=== PATIENT | male | born 1960 | race Caucasian/White ===

== ENCOUNTER → 2022-05-30 | Outpatient (CLI) | payer BC, SELFPAY ==
[2022-05-30 18:03] LABS: Microalbumin,Random Urine 87.8 mg/L (NO RANGE EST.); Microalbumin:Creatinine Ratio 30.3 mg/g CRE (<30 mg/g CRE)
[2022-05-30 18:47] LABS: Anion Gap 6 (5-15); BUN 35 mg/dL (7-18); BUN/Creat Ratio 29.7 RATIO (10-20); Calcium,Total 9.6 mg/dL (8.5-10.1); Chloride 110 mmol/L (98-107); Creatinine, Serum 1.18 mg/dL (0.70-1.30); EST Glomerular Filtration Rate 66 mL/min (>60); Est Glom Filt Rate - Afr Amer 80 mL/min (>60); Glucose 117 mg/dL (74-106); Potassium 4.2 mmol/L (3.5-5.1); Sodium Level 141 mmol/L (136-145)
== END | disposition home or self-care (01) ==
LOC: MFPLAB 15:20
PROVIDERS: PCP Family Medicine; Referring Provider Family Medicine; Visit Provider Family Medicine
DX: I10 Essential (primary) hypertension (principal)
CPT/HCPCS: 36415; 80048; 82043; 82570

== ENCOUNTER → 2022-06-12 | Outpatient (CLI) | payer BC, SELFPAY ==
--- NOTE | 2022-06-12 16:40 | RAD_ITS ---
EXAM: XR LEFT KNEE, 3 VIEWS CLINICAL INDICATION: PAIN TECHNIQUE: Three views of the left knee. This report was created using [employer] report generation technology. COMPARISON: None. FINDINGS: BONES/JOINTS: There are degenerative changes with narrowing of the medial knee joint space. Small suprapatellar joint effusion present. No acute fracture. No subluxation. Normal alignment. No sclerotic or destructive changes observed. SOFT TISSUES: Unremarkable. No soft tissue swelling or gas. No radiopaque foreign body. RAD/Knee 3 Views IMPRESSION: Degenerative changes with narrowing of the medial knee joint. There is a small joint effusion present. There is no acute osseous abnormality. Electronically Signed: Christ Rice MD at 3:08 EDT ,
== END | disposition home or self-care (01) ==
LOC: MTRAD 16:38
PROVIDERS: PCP Family Medicine; Referring Provider Nurse Practitioner Family; Visit Provider Nurse Practitioner Family
DX: M25.562 Pain in left knee (principal)
CPT/HCPCS: 73562

== ENCOUNTER → 2022-08-14 | Outpatient (CLI) | payer BC, SELFPAY ==
[2022-08-14 16:41] LABS: Lyme Ab Screen Interpretation REF LAB
[2022-08-14 17:34] LABS: Absolute Lymphocyte Count 1.47 X10^3/uL (0.83-4.51); Absolute Neutrophil Count 3.7 X10^3/uL (2.0-7.7); Basophil# 0.04 X10^3/uL; Basophil% 0.7 % (0-1); Eosinophil# 0.11 X10^3/uL; Eosinophils% 1.8 % (0-5); Hematocrit 38.9 % (40-54); Hemoglobin 13.4 g/dL (13.0-16.5); Lymphocyte # 1.47 X10^3/ul (0.83-4.51); Lymphocyte % 24.3 % (19-41); Mean Corp Hgb Conc 34.4 g/dL (32-36); Mean Corpuscular Hgb 32.3 pg (27.0-32.0); Mean Corpuscular Volume 93.7 fL (80-94); Mean Platelet Vol. 9.9 fl (6.2-12.0); Monocyte# 0.72 X10^3/uL; Monocyte% 11.9 % (0-10); NRBC Flagged by Analyzer 0 % (0-5); Neutrophil # 3.69 X10^3/uL (2.7-7.7); Platelet Count 215 K/mm3 (150-450); RBC Distribution Width CV 12.4 % (11.6-14.6); RBC Distribution Width SD 42.7 fl (35.1-43.9); Red Blood Count 4.15 M/mm3 (4.6-6.2); White Blood Count 6.1 K/mm3 (4.4-11.0)
[2022-08-14 17:53] LABS: Erythrocyte Sedimentation Rate 18 mm/hr (0-20)
[2022-08-14 18:37] LABS: Microalbumin,Random Urine 18.6 mg/L (NO RANGE EST.); Microalbumin:Creatinine Ratio 16.2 mg/g CRE (<30 mg/g CRE)
[2022-08-14 18:52] LABS: ALB/GLOB Ratio 1.2 RATIO (0.9-2.4); AST(SGOT) 23 U/L (15-37); Alanine Aminotransfer ALT/SGPT 32 U/L (16-61); Albumin, Serum 3.7 g/dL (3.2-5.0); Alkaline Phosphatase 59 U/L (45-117); Anion Gap 9 (5-15); BUN 26 mg/dL (7-18); BUN/Creat Ratio 27.9 RATIO (10-20); Calcium,Total 9.5 mg/dL (8.5-10.1); Chloride 107 mmol/L (98-107); Creatinine, Serum 0.93 mg/dL (0.70-1.30); EST Glomerular Filtration Rate 87 mL/min (>60); Est Glom Filt Rate - Afr Amer 105 mL/min (>60); Globulin 3.2 g/dL (2.2-4.2); Glucose 92 mg/dL (74-106); Protein, Total 6.9 g/dL (6.4-8.2); Sodium Level 140 mmol/L (136-145)
[2022-08-15 08:56] LABS: Hepatitis C Antibody Non-Reactive (Nonreactive); Vitamin B12 391 pg/mL (211-911)
[2022-08-16 15:38] LABS: Lyme Scn Total Ab w/Rflx Negative (Negative)
[2022-08-16 16:25] LABS: ANTINUCLEAR ANTIBODIES DIRECT Negative (Negative)
== END | disposition home or self-care (01) ==
LOC: MFPLAB 16:39
PROVIDERS: Nurse Practitioner Family; PCP Family Medicine; Referring Provider Family Medicine; Visit Provider Family Medicine
DX: R53.83 Other fatigue (principal); N18.2 Chronic kidney disease, stage 2 (mild)
CPT/HCPCS: 36415; 80053; 82043; 82570; 82607; 82746; 85025; 85652; 86038; 86618; 86803

== ENCOUNTER → 2023-01-26 | Outpatient (CLI) | payer BC, SELFPAY ==
[2023-01-26 07:48] LABS: Absolute Lymphocyte Count 1.31 X10^3/uL (0.83-4.51); Absolute Neutrophil Count 2.6 X10^3/uL (2.0-7.7); Basophil# 0.04 X10^3/uL; Basophil% 0.8 % (0-1); Eosinophils% 2.1 % (0-5); Hematocrit 42.1 % (40-54); Hemoglobin 14.3 g/dL (13.0-16.5); Lymphocyte # 1.31 X10^3/ul (0.83-4.51); Lymphocyte % 27.5 % (19-41); Mean Corpuscular Hgb 32.1 pg (27.0-32.0); Mean Corpuscular Volume 94.4 fL (80-94); Mean Platelet Vol. 9.6 fl (6.2-12.0); Monocyte# 0.71 X10^3/uL; Monocyte% 14.9 % (0-10); NRBC Flagged by Analyzer 0 % (0-5); Neutrophil # 2.59 X10^3/uL (2.7-7.7); Neutrophil % 54.5 % (47-70); Platelet Count 207 K/mm3 (150-450); RBC Distribution Width CV 12.4 % (11.6-14.6); RBC Distribution Width SD 43.2 fl (35.1-43.9); Red Blood Count 4.46 M/mm3 (4.6-6.2); White Blood Count 4.8 K/mm3 (4.4-11.0)
[2023-01-26 08:07] LABS: ALB/GLOB Ratio 1.3 RATIO (0.9-2.4); AST(SGOT) 16 U/L (15-37); Alanine Aminotransfer ALT/SGPT 33 U/L (16-61); Albumin, Serum 3.9 g/dL (3.2-5.0); Alkaline Phosphatase 53 U/L (45-117); Anion Gap 6 (5-15); BUN 25 mg/dL (7-18); BUN/Creat Ratio 24.3 RATIO (10-20); Calcium,Total 9.1 mg/dL (8.5-10.1); Chloride 106 mmol/L (98-107); Cholesterol 156 mg/dL (200); Creatinine, Serum 1.03 mg/dL (0.70-1.30); EST Glomerular Filtration Rate 77 mL/min (>60); Est Glom Filt Rate - Afr Amer 93 mL/min (>60); Glucose 115 mg/dL (74-106); High Density Lipoprotein 46 mg/dL; PSA,Total - Annual Screen 0.61 ng/mL (0.00-4.00); Protein, Total 6.9 g/dL (6.4-8.2); Sodium Level 140 mmol/L (136-145); Triglycerides 60 mg/dL; Very Low Density Lipoprotein 12 mg/dL (5-40)
[2023-01-26 08:19] LABS: Microalbumin,Random Urine 10.1 mg/L (NO RANGE EST.)
== END | disposition home or self-care (01) ==
LOC: LAB 07:11
PROVIDERS: PCP Family Medicine; Visit Provider Family Medicine
DX: I12.9 Hypertensive chronic kidney disease with stage 1 through stage 4 chronic kidney disease, or unspecified chronic kidney disease (principal); N18.2 Chronic kidney disease, stage 2 (mild); Z12.5 Encounter for screening for malignant neoplasm of prostate
CPT/HCPCS: 36415; 80053; 80061; 82043; 82570; 84153; 85025; G0103

== ENCOUNTER 2023-04-08 05:23 | Day surgery (SDC) | payer BC, SELFPAY ==
[2023-04-08 05:59] VITALS: BP 136/71; PULSE 50; RESP 16; TEMP 36.9; O2SAT 100; BMI 30.6
[2023-04-08] MEDS: Lactated Ringers 1,000 ML 15 ML IV (06:05)
--- NOTE | 2023-04-08 06:30 | COLBX_PTH ---
PATIENT: BLACK COLE LOC: EN U#:[id number] AGE/SX: 62/M ROOM: RE04/08/[address]: Dr. Antoine Zhou DO : 1960 BED: DIS: 04/08/2023 SPEC #: [id number] RECD: 04/08/23 12:16 STATUS: YAMINI DELIA #: [id number] CHARLENE: 04/08/23 06:[address]: Antoine Zhou DEPT: SURGICAL PATHOLOGY RECD BY: Marybeth Verdin ENTERED: 04/08/23 12:57 SP TYPE: COLON BX OTHR DR: Dr. Johnson Mckee MD Tissues: COLON BIOPSY Procedures: Surgery Specimen Level IV HEADER OPERATION: Colonoscopy with polypectomy PRE-OP DIAGNOSIS: Screening TISSUE SUBMITTED: Hepatic flexure polyp MICROSCOPIC DIAGNOSIS Colonic polyp at hepatic flexure, biopsy: Fragments of tubular adenoma. AM:rosmery 04/09/2023 MICROSCOPIC DESCRIPTION Slides are reviewed. GROSS DESCRIPTION Received in fixative is one container labeled with the patient's name and designated hepatic flexure polyp. The specimen consists of two irregular fragments of light bryson soft tissue that in aggregate measure 0.6 x 0.2 x 0.1 cm. The specimen is totally submitted in one cassette. / SJ:rg 04/08/2023 TC:5 CPT: 71906
--- NOTE | 2023-04-08 06:32 | HP.PCM_ITS ---
[facility] - General General Date of Admission: 04/08/23 Date of Service: 04/08/23 Chief Complaint: Screening colonoscopy HPI Narrative BLACK COLE, is a 62 M who presents today for screening colonoscopy. He has not had a colonoscopy in the past. He is not have any abdominal pain, lower GI bleeding, cramping, constipation or change in bowel habits. He has no family history of colon polyps or colon cancer. Overall is in very good health. [facility] Medical History (Updated 04/03/23 @ 12:44 by Geetha Garcia) Alcohol use CKD (chronic kidney disease), stage II Former smoker Heartburn High cholesterol History of stress test HTN (hypertension) Hypercholesterolemia Sleep apnea Wears glasses Home Medications amlodipine 5 mg tablet 5 mg PO DAILY 01/30/23 [History Last Taken 04/08/23 02:30] ammonium lactate 12 % topical cream 1 applic topical TID 01/30/23 [History Last Taken Unknown] multivitamin 1 tab PO DAILY 01/30/23 [History Last Taken Unknown] pravastatin 40 mg tablet 40 mg PO DAILY 01/30/23 [History Last Taken Unknown] telmisartan 40 mg tablet 40 mg PO DAILY 04/03/23 [History Last Taken 04/08/23 02:30] Allergy/AdvReac Type Severity Reaction Status Date / Time chlorpheniramine Allergy Other Verified 04/03/23 12:29 [From Tussionex] hydrocodone [From Tussionex] Allergy Other Verified 04/03/23 12:29 Family History (Updated 01/30/23 @ 09:44 by Norma Oro) Father Myocardial infarction Heart disease Uncle Prostate CA Surgical History History of tonsillectomy and adenoidectomy Hx of ventral hernia repair Hx of wisdom tooth extraction Social History (Updated 01/30/23 @ 09:45 by Norma Oro) household members: spouse current occupational status: employed Smoking Status: Former smoker ROS Review of Systems ROS Unobtainable: other Constitutional Constitutional: Denies fatigue, fever(s), poor appetite, weight gain or weight loss ENT HEENT: Denies mouth lesions Cardiovascular Cardiovascular: Denies abdominal bloating, abdominal edema or abdominal pain Respiratory/Chest Respiratory/Chest: Denies change in mental status, change in phlegm color, chest congestion or chest tightness Gastrointestinal Gastrointestinal: Denies belching, bloating, change in bowel habits, change in stool character, chewing difficulty, coffee ground emesis, constipation, cramping, diarrhea, dyspepsia, dysphagia, early satiety, excessive flatus, fecal incontinence, heartburn, hematemesis, hematochezia, hemorrhoids, loose stools, melena, nausea, odynophagia, rectal bleeding, tenesmus, vomiting or weight changes Genitourinary Genitourinary: Denies abdominal discomfort, burning urination or itching Musculoskeletal Musculoskeletal: Reports as per HPI; Denies muscle weakness or myalgias Integumentary Integumentary: Denies jaundice Neurologic Neurologic: Denies lack of coordination or weakness Psychiatric Psychiatric: Denies confusion, depression, memory loss, mood swings, paranoia or suicidal ideation Endocrine Endocrinology: Denies systems reviewed and no addt'l complaints, except as documented Hematologic/Lymphatic Hematologic/Lymphatic: Denies anemia, easy bleeding, easy bruising or lymphadenopathy Allergic/Immunologic Allergic/Immunologic: Denies systems reviewed and no addt'l complaints, except as documented Vital Signs Vital Signs Vital Signs: 04/08/23 05:59 04/08/23 05:59 Temperature 98.4 F Temperature Source Temporal Pulse Rate 50 L Respiratory Rate 16 Respiratory Pattern Normal Blood Pressure 136/71 H Blood Pressure Mean 92 Blood Pressure Source Monitor Blood Pressure Position Sitting Blood Pressure Location Left Arm Pulse Ox 100 Oxygen Delivery Method Room Air Weight Weight: 189 lb 9.561 oz Body Mass Index (BMI) 30.6 Physical Exam Const alert General Appearance: cooperative Orientation / Consciousness: oriented to person HEENT hearing grossly normal bilaterally Head and Scalp: normal to inspection Face and Sinus: face symmetric Nose: external nose normal Mouth: oral and palatal mucosa normal Eyes conjunctivae normal General Eye: normal appearance of both eyes Neck full ROM General: normal visual inspection Lymph Lymphatic: no lymphadenopathy noted Chest inspection of chest normal and palpation of chest normal Chest: symmetrical chest wall rise Resp normal respiratory effort Effort and Inspection: able to speak in complete sentences Cardio regular rate GI non-distended Percussion: normal to percussion Rectal Exam: deferred Neuro Speech: speech normal Gait (Neuro): normal gait Assessment & Plan Assessment/Plan (1) Encounter for screening for malignant neoplasm of colon: PLAN: He was explained alternatives, risk, benefits include not withstanding bleeding, infection, sepsis, perforation, need for emergent surgery . He will have an ASA of 1.
[2023-04-08 06:55] VITALS: BP 127/64; BP 136/71; PULSE 58; RESP 16; TEMP 36.2; O2SAT 98
--- NOTE | 2023-04-08 06:57 | OP.COLON_ITS ---
Patient Name: Bj Richardson Procedure Date: 04/08/2023 6:22 AM Date of : 1960 Age: 62 Procedure: Colonoscopy Indications: Screening for colorectal malignant neoplasm Providers: Antoine Zhou DO Referring MD: Johnson Mckee Medicines: Monitored Anesthesia Care Patient Profile: Last Colonoscopy: none. The patient's first colonoscopy is today. Complications: No immediate complications. Procedure: Pre-Anesthesia Assessment: - Prior to the procedure, a History and Physical was performed, and patient medications and allergies were reviewed. The patient is competent. The risks and benefits of the procedure and the sedation options and risks were discussed with the patient. All questions were answered and informed consent was obtained. Patient identification and proposed procedure were verified by the physician. Mental Status Examination: alert and oriented. Airway Examination: normal oropharyngeal airway and neck mobility. Respiratory Examination: clear to auscultation. CV Examination: normal. Prophylactic Antibiotics: The patient does not require prophylactic antibiotics. Prior Anticoagulants: The patient has taken no previous anticoagulant or antiplatelet agents. ASA Grade Assessment: II - A patient with mild systemic disease. After reviewing the risks and benefits, the patient was deemed in satisfactory condition to undergo the procedure. The anesthesia plan was to use monitored anesthesia care (MAC). Immediately prior to administration of medications, the patient was re-assessed for adequacy to receive sedatives. The heart rate, respiratory rate, oxygen saturations, blood pressure, adequacy of pulmonary ventilation, and response to care were monitored throughout the procedure. The physical status of the patient was re-assessed after the procedure. After I obtained informed consent, the scope was passed under direct vision. Throughout the procedure, the patient's blood pressure, pulse, and oxygen saturations were monitored continuously. The colonoscope was introduced through the anus and advanced to the cecum, identified by appendiceal orifice and ileocecal valve. The colonoscopy was performed without difficulty. The patient tolerated the procedure well. The quality of the bowel preparation was adequate. Scope In: 6:39:18 AM Scope Withdrawal Time 0 hours 8 minutes 56 seconds Scope Out: 6:51:07 AM Total Procedure Duration Time 0 hours 11 minutes 49 seconds Findings: The perianal and digital rectal examinations were normal. Multiple small and large-mouthed diverticula were found in the recto-sigmoid colon, sigmoid colon, descending colon and splenic flexure. A 7 mm polyp was found in the hepatic flexure. The polyp was sessile. The polyp was removed with a cold snare. Resection and retrieval were complete. Verification of patient identification for the specimen was done. Estimated blood loss was minimal. Non-bleeding internal hemorrhoids were found during retroflexion. The hemorrhoids were Grade I (internal hemorrhoids that do not prolapse). Impression: - Diverticulosis in the recto-sigmoid colon, in the sigmoid colon, in the descending colon and at the splenic flexure. - One 7 mm polyp at the hepatic flexure, removed with a cold snare. Resected and retrieved. - Non-bleeding internal hemorrhoids. Recommendation: - Repeat colonoscopy in 5 years for surveillance. - Continue present medications. Procedure Code(s): --- Professional --- 75963, Colonoscopy, flexible; with removal of tumor(s), polyp(s), or other lesion(s) by snare technique CPT copyright 2017 [employer]. All rights reserved. The codes documented in this report are preliminary and upon water main inspector review may be revised to meet current compliance requirements. Antoine Zhou DO 04/08/2023 6:56:37 AM This report has been signed electronically. Number of Addenda: 0 Note Initiated On: 04/08/2023 6:22 AM
--- NOTE | 2023-04-08 06:58 | OP.CCLET_ITS ---
04/08/2023 Johnson Mckee [address] [place] [address] Re : Colonoscopy procedure for Bj Lazarer Dear Dr. Mckee This procedure was performed on Saturday, April 08, 2023. My impressions and recommendations are as follows: Impressions : - Diverticulosis in the recto-sigmoid colon, in the sigmoid colon, in the descending colon and at the splenic flexure. - One 7 mm polyp at the hepatic flexure, removed with a cold snare. Resected and retrieved. - Non-bleeding internal hemorrhoids. Recommendations : - Repeat colonoscopy in 5 years for surveillance. - Continue present medications. My findings are described in the full procedure note, which is enclosed. If I can be of further assistance, please feel free to contact me at . Sincerely, Antoine Zhou, 04/08/2023 6:56:37 AM This report has been signed electronically.
[2023-04-08 07:00] VITALS: BP 121/68; BP 136/71; PULSE 57; RESP 16; O2SAT 99
[2023-04-08 07:05] VITALS: BP 128/71; BP 136/71; PULSE 53; RESP 16; O2SAT 99
[2023-04-08 07:10] VITALS: BP 131/67; BP 136/71; PULSE 57; RESP 16; TEMP 36.3; O2SAT 99
[2023-04-08 07:46] VITALS: BP 136/71
== END 2023-04-08 07:58 | disposition home or self-care (01) ==
LOC: EN 05:23 → AC 05:25
PROVIDERS: PCP Family Medicine; Referring Provider Family Medicine; Visit Provider Internal Medicine Gastroenterology
PROC: 0DJD8ZZ Inspection of Lower Intestinal Tract, Via Natural or Artificial Opening Endoscopic (ICD-10-PCS; CPT 45378; principal; 2023-04-08 06:25)
DX: Z12.11 Encounter for screening for malignant neoplasm of colon (principal); K64.0 First degree hemorrhoids; I12.9 Hypertensive chronic kidney disease with stage 1 through stage 4 chronic kidney disease, or unspecified chronic kidney disease; N18.2 Chronic kidney disease, stage 2 (mild); K57.30 Diverticulosis of large intestine without perforation or abscess without bleeding; E78.00 Pure hypercholesterolemia, unspecified; Z87.891 Personal history of nicotine dependence; D12.3 Benign neoplasm of transverse colon; Z79.899 Other long term (current) drug therapy
CPT/HCPCS: 45385; 88305; J7120; J2405

== ENCOUNTER → 2023-12-04 | Outpatient (CLI) | payer OTHER, SELFPAY ==
--- OUTSIDE RECORDS SUMMARY | 2023-12-04 17:47 | XMS RPT_ITS | CCD ---
Author Name Unknown Address [address] [place] [address] Organization [facility] Care Team Providers Care Whiskey Filterer Name Role Phone NNAMDI PEREYRA Referring Unavailable Unavailable Primary Care Provider Unavailabl e Encounters Encounter Date Encounter Type Care Provider Facility Start: 09-08-2019 End: 09-11-2019 Patient encounter procedure NNAMDI PEREYRA [facility] Start: 09-08-2019 End: 09-10-2019 Subsequent hospital visit by physician [facility] Plan of Treatment Date Care Activity Detail Author Start: 07-19-2019 Influenza vaccination Flu vaccine (# 1) [place], [place] Social History Date Type Detail Facility Tobacco smoking status NHIS Unknown if ev er smoked [place], [place] Sex Assigned At Not on file [place], [place] Summary Purpose Family History No Family History Records Found Advance Directives Documents on File Type Date 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 This clinical summary was aggregated from multiple sources. Caution should be exercised in using it in the provision of clinical care. This summary normalizes information from multiple sources, and as a consequence, information in this document may materially change the coding, format and clinical context of patient data. In addition, data may be omitted in some cases. CLINICAL DECISIONS SHOULD BE BASED ON THE PRIMARY CLINICAL RECORDS. [email or web address] provides no warranty or guarantee of the accuracy or completeness of information in this document.
[2023-12-04 18:21] LABS: D-Dimer Quantitative (DVT/PE) 0.33 FEU/ug/m (0.27-0.49)
== END | disposition home or self-care (01) ==
PROVIDERS: PCP Family Medicine; Referring Provider Family Medicine; Visit Provider Family Medicine
DX: R60.0 Localized edema (principal)
CPT/HCPCS: 36415; 85379

== ENCOUNTER → 2024-01-30 | Outpatient (CLI) | payer OTHER, SELFPAY ==
[2024-01-30 16:18] LABS: Absolute Lymphocyte Count 1.54 X10^3/uL (0.83-4.51); Absolute Neutrophil Count 3.2 X10^3/uL (2.0-7.7); Basophil# 0.02 X10^3/uL; Basophil% 0.4 % (0-1); Eosinophil# 0.08 X10^3/uL; Eosinophils% 1.4 % (0-5); Hematocrit 43.2 % (40-54); Hemoglobin 14.3 g/dL (13.0-16.5); Lymphocyte # 1.54 X10^3/ul (0.83-4.51); Lymphocyte % 27.9 % (19-41); Mean Corp Hgb Conc 33.1 g/dL (32-36); Mean Corpuscular Volume 93.7 fL (80-94); Mean Platelet Vol. 10.2 fl (6.2-12.0); Monocyte# 0.72 X10^3/uL; NRBC Flagged by Analyzer 0 % (0-5); Neutrophil # 3.15 X10^3/uL (2.7-7.7); Neutrophil % 57.1 % (47-70); Platelet Count 198 K/mm3 (150-450); RBC Distribution Width CV 12.8 % (11.6-14.6); RBC Distribution Width SD 43.8 fl (35.1-43.9); Red Blood Count 4.61 M/mm3 (4.6-6.2); White Blood Count 5.5 K/mm3 (4.4-11.0)
[2024-01-30 17:01] LABS: Vitamin D,25 Hydroxy 34.3 ng/mL
[2024-01-30 17:07] LABS: Microalbumin,Random Urine 8.5 mg/L (NO RANGE EST.); Microalbumin:Creatinine Ratio 6.6 mg/g CRE (<30 mg/g CRE)
[2024-01-30 17:09] LABS: ALB/GLOB Ratio 1.3 RATIO (0.9-2.4); AST(SGOT) 20 U/L (15-37); Alanine Aminotransfer ALT/SGPT 28 U/L (16-61); Albumin, Serum 3.9 g/dL (3.2-5.0); Alkaline Phosphatase 59 U/L (45-117); Anion Gap 7 (5-15); BUN 30 mg/dL (7-18); BUN/Creat Ratio 26.5 RATIO (10-20); Calcium,Total 9.3 mg/dL (8.5-10.1); Chloride 109 mmol/L (98-107); Creatinine, Serum 1.13 mg/dL (0.70-1.30); EST Glomerular Filtration Rate 69 mL/min (>60); Est Glom Filt Rate - Afr Amer 84 mL/min (>60); Globulin 3.1 g/dL (2.2-4.2); Glucose 100 mg/dL (74-106); Potassium 4.4 mmol/L (3.5-5.1); Sodium Level 142 mmol/L (136-145); Thyroid Stim Hormone (TSH) 1.51 uIU/mL (0.358-3.74)
--- OUTSIDE RECORDS SUMMARY | 2024-01-30 21:52 | XMS RPT_ITS | CCD ---
Author Name Unknown Address [address] [place] [address] Organization [facility] Care Team Providers Care Security Assurance Specialist Name Role Phone NNAMDI PEREYRA Referring Unavailable Unavailable Primary Care Provider Unavailabl e Encounters Encounter Date Encounter Type Care Provider Facility Start: 09-08-2019 End: 09-11-2019 Patient encounter procedure NNAMDI PEREYRA [facility] Start: 09-08-2019 End: 09-10-2019 Subsequent hospital visit by physician [facility] Plan of Treatment Date Care Activity Detail Author Start: 07-19-2019 Influenza vaccination Flu vaccine (# 1) [place], [place] Social History Date Type Detail Facility Tobacco smoking status NHIS Unknown if ev er smoked [place], [place] Sex Assigned At Not on file [place], [place] Summary Purpose Family History No Family History Records Found Advance Directives Documents on File Type Date 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 [email or web address] provides no warranty or guarantee of the accuracy or completeness of information in this document.
== END | disposition home or self-care (01) ==
LOC: LAB 15:22
PROVIDERS: PCP Family Medicine; Referring Provider Family Medicine; Visit Provider Family Medicine
DX: I12.9 Hypertensive chronic kidney disease with stage 1 through stage 4 chronic kidney disease, or unspecified chronic kidney disease (principal); N18.2 Chronic kidney disease, stage 2 (mild)
CPT/HCPCS: 36415; 80053; 82043; 82306; 82570; 84443; 85025

== ENCOUNTER 2024-07-13 12:30 | Outpatient (RCR) | payer MEDICARE, SELFPAY ==
--- NOTE | 2024-06-12 11:44 | HP.OTEVAL_ITS ---
Patient's Visit Information Visit Information Visit Information: BLACK COLE is a 63 year old M, referred to Occupational Therapy by Dr. Johnson Mckee MD, with a diagnosis of R trigger thumb. Date of Evaluation: 06/12/24 Occupational Therapist: Sharlene Quiroz, JAZZR/Yuri, CHT Subjective Subjective: This 63 year old male arrives with dx of R trigger thumb. Thumb was bothering for over a month, kept getting worse and saw doctor Saturday06/08/24. Pt is right hand dominant and has R thumb/hand pain and limited strength and ROM. 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 Pt is retired and lives with . Has some numbness and tingling in morning after sleeping. Pt enjoys landscaping and outdoor tasks. ed handout on diagnosis- ice massage, ergonomics, ed on ice and warm water soak, avoid repetitive squeezing oval 8 splint wear and use ed on splint at night Pain R thumb: Current Pain Intensity: 5 Pain Intensity Range: 8 ROM CMC: R 20 L 40 MP: R 25 L 35 IP: R 0/20 L 0/55 ROM Comments: shoulder, forearm, wrist, fingers WFL noted right positive thumb triggering Strength Firepot Operator And Tender: R 50# L 75# Lateral Pinch: L 18# R not tested Tripod Pinch: L 16# R not tested Strength Comments: shoulder, wrist, forearm WFL R pinch not tested at this time due to pain Quick DASH-Disab of Arm,Shoulder& Hand Quick DASH Score: 25.0000 Goals Goal:ROM equal to unaffected hand: Yes Comment: without signs of right thumb triggering Goal:Firepot Operator And Tender/Pinch strength at least 75% of unaffected hand: Yes Goal:No pain with affected hand use: Yes Goal:Full use of affected hand in daily activities including work: Yes Comment: ADL Other Goal: pt will increase I in all ADLs/IADLs with pain no greater than a 2 a s evidenced by verbal discussion by end of POC. Pt will demo understanding of using bracing/orthosis to decrease tension on tendon by end of 1s session. 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 pt is recommended to complete OT 2x a week for 3 weeks to address above impairments. Therapy session was directly supervised and doc. approved by Sharlene Quiroz OTR/Yuri, CHT. Rehabilitation Potential: Good Anticipated Interventions Anticipated Interventions: A/AAROM/PROM, Strengthening, Triggerpoint Release, Modalities, Orthoses, Joint Protection/Energy Conservation, Ergonomic Education, Education re assistive Equipment, Education re Diagnosis, Caregiver Training and Home Program Visit Plan Frequency: 2x /Week Duration: 3 Weeks General Plan: decrease pain improve ROM increase strength TEXT: Thank you for the opportunity to evaluate your patient. For Medicare and Medicare HMO plans, please review the plan of care and approve it. It will need to be FAXED BACK to us at [phone] for Medicare purposes. Please let me know if there are questions or concerns regarding this plan of care. Physician Signature: Date:
--- NOTE | 2024-07-15 08:39 | HP.OTREVAL ---
Re-Evaluation Intro: Dr. Johnson Mckee MD, It has been my pleasure to treat BLACK COLE over the last 10 visits for R trigger thumb. Please see the progress note below for an update on the occupational therapy plan of care! 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 pt states he is ready to move forward with having sx as the triggering has not fully resolved at this time. Objective Objective/Function: ed. pt that we will wean out of tape in next week- pt agrees Plan Plan Plan: pt to return to for referral to surgeon per pts choice as pt has not made sig.gains at this time. pt will cont. with conservative use of bracing/ tape Goals Goals Patient Goals: Regain Strength, Decrease Pain, Use Hand/Wrist/Arm Normally Again, Decrease Tingling/Numbness, Increase ROM, Be More Independent in ADLS, Resume Former Household Responsibilities (Cooking,Cleaning,Yard, etc.) and Resume Hobbies Goal:ROM equal to unaffected hand: Yes Goal:Lumber Press Operator/Pinch strength at least 75% of unaffected hand: Yes Goal:No pain with affected hand use: Yes Goal:Full use of affected hand in daily activities including work: Yes Other Goal: pt will increase I in all ADLs/IADLs with pain no greater than a 2 as evidenced by verbal discussion by end of POC. Pt will demo understanding of using bracing/orthosis to decrease tension on tendon by end of 1s session. Anticipated Interventions Anticipated Interventions Anticipated Interventions: A/AAROM/PROM, Strengthening, Triggerpoint Release, Modalities, Orthoses, Joint Protection/Energy Conservation, Ergonomic Education, Education re assistive Equipment, Education re Diagnosis, Caregiver Training and Home Program Re-Evaluation Ending Re-evaluation ending: Please do not hesitate to contact me at [phone] by phone or if you have questions or concerns regarding this new plan of care! Sincerely, Sharlene Quiroz, JAZZR/L, CHT
== END 2024-07-13 19:00 | disposition home or self-care (01) ==
LOC: OT 12:30
PROVIDERS: PCP Family Medicine; Referring Provider Family Medicine; Visit Provider Family Medicine
DX: M65.311 Trigger thumb, right thumb (principal)
CPT/HCPCS: 97035; 97140; 97165; 97530

== ENCOUNTER 2024-08-12 11:37 | Day surgery (SDC) | payer MEDICARE, SELFPAY ==
[2024-08-12] VITALS (10 sets, daily range): BP systolic 130–160; BP diastolic 68–95; PULSE 46–94; RESP 16–18; TEMP 36.1–36.7; O2SAT 92–98; BMI 31.5
--- NOTE | 2024-08-12 10:03 | PCM.HP.STD ---
HPI - General HPI Narrative BLACK COLE, is a 64 M who presents right thumb triggering. Current Encounter (DATE OF SURGERY H&P UPDATE): I saw and examined the patient this morning in pre-operative holding. We discussed risks and benefits of today's surgery and they would like to proceed. NO CHANGE in health history since last seen and evaluated. Ready to proceed with surgery. [facility] Medical History Wears glasses Alcohol use High cholesterol Heartburn Former smoker Sleep apnea History of stress test Hypercholesterolemia CKD (chronic kidney disease), stage II HTN (hypertension) Home Medications ?Medication ?Instructions ?Recorded ?Last Taken ?Type amlodipine 5 mg tablet 5 mg PO DAILY 01/30/23 08/12/24 05:30 History multivitamin 1 tab PO DAILY 01/30/23 Unknown History pravastatin 40 mg tablet 40 mg PO DAILY 01/30/23 Unknown History telmisartan 40 mg tablet 40 mg PO DAILY 04/03/23 08/12/24 05:30 History betamethasone dipropionate 0.05 % 1 applic topical Q12H PRN rash 07/30/24 Unknown History topical cream oxycodone 5 mg tablet 5 mg PO DAILY PRN pain 5 days #5 08/12/24 Unknown Rx tabs Allergy/AdvReac Type Severity Reaction Status Date / Time chlorpheniramine (From Allergy Other Verified 08/12/24 12:23 Tussionex) hydrocodone (From Tussionex) Allergy Other Verified 08/12/24 12:23 Family History Father Myocardial infarction Heart disease Uncle Prostate CA Surgical History History of colonoscopy History of tonsillectomy and adenoidectomy Hx of wisdom tooth extraction Hx of ventral hernia repair Social History household members: spouse current occupational status: employed Smoking Status: Former smoker Vital Signs Vital Signs Vital Signs: Weight Weight: 194 lb Physical Exam Narrative PE: Exam of the RIGHT upper limb revealed: ([+]) tenderness to palpation over T1 danny of the right thumb ([+]) reproducible triggering of the right thumb. ([-]) visible or palpable Dupuytren's nodule/cord in the palm. ([-]) Table Top test. Assessment & Plan Assessment/Plan (1) Trigger thumb, right thumb: PLAN: INTERVAL H&P PLAN, DATE OF SURGERY: We will proceed with surgery today. I marked his right thumb and he was in agreement that this was the operative site.
--- NOTE | 2024-08-12 10:04 | PCM.OP.BLANK ---
Operative Report Date of Procedure: 08/12/24 Surgery/Procedure Date: 12 August 2024 Incision/Procedure Start Time: 1:43 pm Incision Close/Procedure End Time: 2:05 pm PATIENT: Bj Richardson SURGEON: Yann Garrido MD PRE-OPERATIVE DIAGNOSIS: Right thumb triggering POST-OPERATIVE DIAGNOSIS: Same PROCEDURE PERFORMED: 1) RIGHT THUMB T1 LESLEY RELEASE, CPT; 01655 = Trigger Finger Release? OPERATIVE FINDINGS: Thickened T1 lesley, appeared chronically inflamed. INDICATIONS: Boby Richardson is a 64 YO with right thumb triggering. Presents today for release. I talked the patient about the risks of surgery, including bleeding, infection, damage to surrounding structures, surgical site dehiscence and wound formation, need for wound care, need for repeat operations, failure to obtain the desired result, and the risks of anesthesia including . All of their questions were answered, and they agreed to proceed with surgery. OPERATIVE DETAILS: A time-out was performed. IV sedation was administered by the anesthesia team. A Audie block and sedation was performed. After ensuring adequate local anesthesia had been achieved, the hand and forearm of the operated extremity were prepped and draped in the standard sterile fashion. Anther time-out was performed. A transverse incision over the right thumb T1 lesley was made using the scalpel, followed by dissection under loupe magnification.? The radial and ulnar digital nerves were visualized and protected.? The thickened T1 lesley was then visualized, and completely divided longitudinally using a 15 blade. After division of the T1 lesley, the flexor tendon was manually retracted using a Ragnell to pull the digit into full flexion and passively extend into full extension.? No additional triggering was encountered with this maneuver. The wound was copiously irrigated using sterile normal saline.? The Tourniquet was let down (time was 20 minutes TT). Hemostasis was achieved using bipolar cautery.? The incision was then closed in a single layer using horizontal mattress 3-0 nylon sutures. A soft dressing was applied. All counts were correct at the conclusion of the case. The patient tolerated the procedure without any immediate complication and was transported to PACU in good condition. EBL: Minimal Anesthesia: Audie block and sedation ASA: 3 IVF: 300 cc of LR UOP: Unmeasured Transfusions: none 2grams of Ancef perioperatively POST-OPERATIVE PLAN: Soft dressing x 5 days, then remove and can get incisions wet. No using the right hand for any lifting (needs to move for range of motion, but no lifting). F/u in 1 week in clinic.
[2024-08-12] MEDS: Lactated Ringers 1,000 ML 15 ML IV (12:20)
--- NOTE | 2024-08-12 12:55 | PRE.ANES_ITS ---
ASA Classification* ASA Classification ASA Classification: 2 Assessment & Plan Anesthesia* Anesthesia Assessment Anesthesia Assessment: Discussed sedation and/or anesthesia options, risks, benefits, and alternatives with patient/parents/legal guardian/POA. Questions invited. The patient/parents/legal guardian/POA seems to understand and agrees to proceed with anesthesia plan. Reviewed the physical assessment, medical history, allergy history and patient home medications list prior to surgery/procedure/anesthetic and documented any changes. Performed airway and anesthesia risk assessments. Anesthesia Type Anesthesia Type: MAC and Block (Plan to Audie block) History Source History Obtained from:: Patient and Chart Anesthesia Focused Assessment* Temperature: 98.0 F Pulse Rate: 94 Blood Pressure: 154/68 Respiratory Rate: 18 Pulse Ox: 98 Oxygen Delivery Method: Room Air Airway Assessment Mouth opens: >3 cm Mallampati Score: IV Teeth Condition: Caps/Crowns (Patient has a implant on #8. Patient has a couple crowns. They are tight.) Neck Range of motion (ROM): Limited ROM (Slight decrease in extension.) Focused Labs Anesthesia Preop lab: CBC WBC 5.5 K/mm3 (4.4-11.0) 01/30/24 15:39 RBC 4.61 M/mm3 (4.6-6.2) 01/30/24 15:39 Hgb 14.3 g/dL (13.0-16.5) 01/30/24 15:39 Hct 43.2 % (40-54) 01/30/24 15:39 Plt Count 198 K/mm3 (150-450) 01/30/24 15:39 CHEMISTRY Potassium 4.4 mmol/L (3.5-5.1) 01/30/24 15:39 Sodium 142 mmol/L (136-145) 01/30/24 15:39 BUN 30 mg/dL (7-18) H 01/30/24 15:39 Creatinine 1.13 mg/dL (0.70-1.30) 01/30/24 15:39 Glucose 100 mg/dL (74-106) 01/30/24 15:39 TSH 1.51 uIU/mL (0.358-3.74) 01/30/24 15:39 COAG Pre-Assessment Diagnosis/Proposed Procedure Planned Operative Procedure(s): (R) Right thumb trigger finer release Anesthesia History Anesthesia History - contract administrator: Anesthesia History - contract administrator Hx Hospitalization No 07/30/24 10:14 Any Problems With Anesthesia No 07/30/24 10:14 Cholinesterase deficiency No 07/30/24 10:14 You/Your Family Experience No 07/30/24 10:14 fever (hyperthermia) with Relationship Recent Exposure to Contagious No 08/12/24 12:29 Disease Does patient have nerve No 07/30/24 10:14 stimulator Patient instructed to have device shut off --Does patient have Pacemaker No 08/12/24 12:29 or ICD? When Was Last Pacemaker Check QUESTION #4 FULL TEXT: You/Your Family Experience fever (hyperthermia) with Anesthesia Last Oral Intake Last Oral intake: Last Oral Intake NPO since 05:30 08/12/24 12:29 Meds taken in AM with sips of Yes 08/12/24 12:29 water? Meds patient instructed to take am of surgery Any additional information?: Yes Meds taken in AM with sips of water?: Yes PONV PONV - contract administrator: PONV - contract administrator Female No 07/30/24 10:14 HX of Motion Sickness Yes 07/30/24 10:14 HX of N/V After Surgery No 07/30/24 10:14 Non-Smoker Yes 07/30/24 10:14 Duration of Surgery greater No 07/30/24 10:14 than 60 minutes Number of Risk Factors 2 07/30/24 10:14 PONV Score Moderate Risk 07/30/24 10:14 Height & Weight Height & Weight: Anesthesia: Height & Weight Height 5 ft 6 in 08/12/24 12:29 Weight: 88.6 kg 08/12/24 12:29 Body Mass Index (BMI) 31.5 08/12/24 12:29 Respiratory Assessment Respiratory Assessment - contract administrator: Respiratory Tract Infection Hx - contract administrator Hx Respiratory Tract Infection No 07/30/24 10:14 STOP Sleep Apnea STOP Sleep Apnea - contract administrator: STOP Sleep Apnea - contract administrator Hx Hypertension Yes: CONTROLLED WITH MED 07/30/24 10:14 Hx Sleep Apnea Yes: DID NOT FOLLOW UP AFTER 07/30/24 10:14 DIAGNOSED CPAP No 07/30/24 10:14 BIPAP No 07/30/24 10:14 Do you snore loudly (louder than talking or can be heard Do you often feel tired/ fatigued/ sleepy during daytime? Has anyone observed you stop breathing during sleep? STOP Results Positive 07/30/24 10:14 QUESTION #5 FULL TEXT : Do you snore loudly (louder than talking or can be heard through closed doors)? 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 Specify any problems Hx of Preganancy in last 3 N/A 07/30/24 10:14 Months Nurse Filling Out Transfusion NBUCHER 07/30/24 10:14 & Questions: Date: 07/30/24 07/30/24 10:14 Time: 10:16 07/30/24 10:14 Patient unable to answer at this time (ie. confused, unrespo /Reproduction History /Reproductive History - contract administrator: /Reproductive Hx- contract administrator Hx Now Gestational Age (in weeks): EDC: Hx Hx Para Hx Section SAB Active Medications Active Medications: Current Medications Generic Name Dose Route Start Last Admin Trade Name Freq PRN Reason Stop Dose Admin Cefazolin Sodium 2 gm/ Sodium 110 mls @ 150 mls/hr 08/12/24 13:25 Chloride IV 08/12/24 14:08 PREOP ONE Lactated Ringer's 1,000 mls @ 15 mls/hr 08/12/24 12:30 08/12/24 12:20 IV 15 mls/hr .Q48H SANDRA Administration PFSH Medical History Wears glasses Alcohol use High cholesterol Heartburn Former smoker Sleep apnea History of stress test Hypercholesterolemia CKD (chronic kidney disease), stage II HTN (hypertension) Home Medications ?Medication ?Instructions ?Recorded ?Last Taken ?Type amlodipine 5 mg tablet 5 mg PO DAILY 01/30/23 08/12/24 05:30 History multivitamin 1 tab PO DAILY 01/30/23 Unknown History pravastatin 40 mg tablet 40 mg PO DAILY 01/30/23 Unknown History telmisartan 40 mg tablet 40 mg PO DAILY 04/03/23 08/12/24 05:30 History betamethasone dipropionate 0.05 % 1 applic topical Q12H PRN rash 07/30/24 Unknown History topical cream oxycodone 5 mg tablet 5 mg PO DAILY PRN pain 5 days #5 08/12/24 Unknown Rx tabs Allergy/AdvReac Type Severity Reaction Status Date / Time chlorpheniramine (From Allergy Other Verified 08/12/24 12:23 Tussionex) hydrocodone (From Tussionex) Allergy Other Verified 08/12/24 12:23 Family History Father Myocardial infarction Heart disease Uncle Prostate CA Surgical History History of colonoscopy History of tonsillectomy and adenoidectomy Hx of wisdom tooth extraction Hx of ventral hernia repair Social History household members: spouse current occupational status: employed Smoking Status: Former smoker Review of Systems (Anesthesia) ROS Narrative System reviewed and no additional complaints, except as documented.
[2024-08-12] MEDS: Cefazolin 2 GM in 0.9% Normal Saline (100mL Bag) 100 ML IV (13:25)
--- NOTE | 2024-08-12 14:25 | PCM.POST.ANE ---
Anesthesia: Postop Eval I Current Vital Signs Temperature: 97 F Pulse Rate: 50 Blood Pressure: 157/79 Respiratory Rate: 16 Pulse Ox: 98 Oxygen Delivery Method: Room Air Assessment Airway patent: Yes Spontaneous unlabored respirations: Yes Mental status: Awake and Calm nausea: No Vomiting: No Anesthesia Complication: No Fluid Hydration Crystalloid volume administer (ml): 300 Total IV fluid infused: 300 Progress Note Anesthesia document: Postop Eval 1 completed: Yes
[2024-08-12] MEDS: oxyCODONE 5 MG Tablet PO (15:17)
== END 2024-08-12 15:56 | disposition home or self-care (01) ==
LOC: SDC 11:38 → AC 11:39
PROVIDERS: PCP Family Medicine; Referring Provider Surgery Plastic and Reconstructive Surgery; Visit Provider Surgery Plastic and Reconstructive Surgery
PROC: (CPT 26055; principal; 2024-08-12 13:10)
DX: M65.311 Trigger thumb, right thumb (principal); I12.9 Hypertensive chronic kidney disease with stage 1 through stage 4 chronic kidney disease, or unspecified chronic kidney disease; E78.00 Pure hypercholesterolemia, unspecified; N18.2 Chronic kidney disease, stage 2 (mild); Z87.891 Personal history of nicotine dependence
CPT/HCPCS: 26055; J2405

== ENCOUNTER → 2024-11-02 | Outpatient (CLI) | payer MEDICARE, SELFPAY ==
[2024-11-02 15:07] LABS: Absolute Lymphocyte Count 1.44 X10^3/uL (0.83-4.51); Absolute Neutrophil Count 7.8 X10^3/uL (2.0-7.7); Basophil# 0.04 X10^3/uL; Basophil% 0.4 % (0-1); Eosinophil# 0.06 X10^3/uL; Eosinophils% 0.6 % (0-5); Hematocrit 41.9 % (40-54); Hemoglobin 14.2 g/dL (13.0-16.5); Lymphocyte # 1.44 X10^3/ul (0.83-4.51); Lymphocyte % 13.4 % (19-41); Mean Corp Hgb Conc 33.9 g/dL (32-36); Mean Corpuscular Hgb 31.8 pg (27.0-32.0); Mean Corpuscular Volume 93.9 fL (80-94); Mean Platelet Vol. 10.5 fl (6.2-12.0); Monocyte% 12.1 % (0-10); NRBC Flagged by Analyzer 0 % (0-5); Neutrophil # 7.84 X10^3/uL (2.7-7.7); Neutrophil % 73.1 % (47-70); Platelet Count 225 K/mm3 (150-450); RBC Distribution Width SD 44.4 fl (35.1-43.9); Red Blood Count 4.46 M/mm3 (4.6-6.2); White Blood Count 10.7 K/mm3 (4.4-11.0)
[2024-11-02 15:57] LABS: AST(SGOT) 16 U/L (15-37); Alanine Aminotransfer ALT/SGPT 30 U/L (16-61); Albumin, Serum 3.8 g/dL (3.2-5.0); Alkaline Phosphatase 69 U/L (45-117); Anion Gap 6 (5-15); BUN 20 mg/dL (7-18); BUN/Creat Ratio 17.9 RATIO (10-20); Calcium,Total 9.4 mg/dL (8.5-10.1); Chloride 106 mmol/L (98-107); Creatinine, Serum 1.12 mg/dL (0.70-1.30); EST Glomerular Filtration Rate 70 mL/min (>60); Est Glom Filt Rate - Afr Amer 84 mL/min (>60); Globulin 3.7 g/dL (2.2-4.2); Glucose 132 mg/dL (74-106); Potassium 3.8 mmol/L (3.5-5.1); Protein, Total 7.5 g/dL (6.4-8.2); Sodium Level 136 mmol/L (136-145)
[2024-11-04 14:08] LABS: PROEL- A/G Ratio 1.3 (0.7-1.7); PROEL- Albumin 3.8 g/dL (2.9-4.4); PROEL- Alpha-1 Globulin 0.3 g/dL (0.0-0.4); PROEL- Gamma Globulin 0.6 g/dL (0.4-1.8); PROEL- Globulin, Total 2.9 g/dL (2.2-3.9); PROEL- TOTAL PROTEIN 6.7 g/dL (6.0-8.5); PROEL-M-Spike Not Observed g/dL (Not Observed)
== END | disposition home or self-care (01) ==
LOC: MFPLAB 11:59
PROVIDERS: PCP Family Medicine; Referring Provider Family Medicine; Visit Provider Family Medicine
DX: R53.83 Other fatigue (principal)
CPT/HCPCS: 36415; 80053; 84165; 84443; 85025

== ENCOUNTER → 2025-05-04 | Outpatient (CLI) | payer MEDICARE, SELFPAY ==
[2025-05-04 15:46] LABS: Absolute Lymphocyte Count 1.06 X10^3/uL (0.83-4.51); Absolute Neutrophil Count 3.1 X10^3/uL (2.0-7.7); Basophil# 0.03 X10^3/uL; Basophil% 0.6 % (0-1); Eosinophil# 0.08 X10^3/uL; Eosinophils% 1.6 % (0-5); Hematocrit 41.8 % (40-54); Hemoglobin 13.9 g/dL (13.0-16.5); Lymphocyte # 1.06 X10^3/ul (0.83-4.51); Lymphocyte % 21.5 % (19-41); Mean Corp Hgb Conc 33.3 g/dL (32-36); Mean Corpuscular Hgb 31.4 pg (27.0-32.0); Mean Corpuscular Volume 94.6 fL (80-94); Mean Platelet Vol. 10.6 fl (6.2-12.0); Monocyte# 0.66 X10^3/uL; Monocyte% 13.4 % (0-10); NRBC Flagged by Analyzer 0 % (0-5); Neutrophil % 62.7 % (47-70); Platelet Count 200 K/mm3 (150-450); RBC Distribution Width SD 45.3 fl (35.1-43.9); Red Blood Count 4.42 M/mm3 (4.6-6.2); White Blood Count 4.9 K/mm3 (4.4-11.0)
[2025-05-04 17:05] LABS: ALB/GLOB Ratio 1.8 RATIO (0.9-2.4); AST(SGOT) 21 U/L (<=37); Alanine Aminotransfer ALT/SGPT 21 U/L (<=46); Albumin, Serum 4.4 g/dL (3.4-4.8); Alkaline Phosphatase 58 U/L (40-129); Anion Gap 10 (5-15); BUN 21 mg/dL (4-19); BUN/Creat Ratio 20.5 RATIO (10-20); Calcium,Total 9.5 mg/dL (7.6-11.0); Carbon Dioxide 23.4 mmol/L (21.0-32.0); Chloride 105 mmol/L (98-108); Creatinine, Serum 1.03 mg/dL (0.70-1.20); EST Glomerular Filtration Rate 80 (>60); Globulin 2.4 g/dL (2.2-4.2); Glucose 94 mg/dL (70-99); Potassium 4.5 mmol/L (3.3-5.1); Protein, Total 6.7 g/dL (5.9-8.4); Sodium Level 138 mmol/L (133-145); Syphilis Antibodies Nonreactive (Nonreactive); Total Bilirubin 0.41 mg/dL (0.00-1.30)
[2025-05-06 15:09] LABS: PROEL- A/G Ratio 1.6 (0.7-1.7); PROEL- Albumin 3.9 g/dL (2.9-4.4); PROEL- Alpha-1 Globulin 0.4 g/dL (0.0-0.4); PROEL- Alpha-2 Globulin 0.7 g/dL (0.4-1.0); PROEL- Beta Globulin 0.9 g/dL (0.7-1.3); PROEL- Gamma Globulin 0.4 g/dL (0.4-1.8); PROEL- Globulin, Total 2.4 g/dL (2.2-3.9); PROEL- TOTAL PROTEIN 6.3 g/dL (6.0-8.5); PROEL-M-Spike Not Observed g/dL (Not Observed)
== END | disposition home or self-care (01) ==
LOC: MFPLAB 11:40
PROVIDERS: PCP Family Medicine; Referring Provider Family Medicine; Visit Provider Family Medicine
DX: I10 Essential (primary) hypertension (principal); F09 Unspecified mental disorder due to known physiological condition
CPT/HCPCS: 36415; 80053; 84165; 84443; 85025; 86780

== ENCOUNTER → 2025-08-09 | Outpatient (CLI) | payer MEDICARE, SELFPAY ==
[2025-08-09 12:57] LABS: Creatinine, Urine (random) 259.00 mg/dL (39.00-259.00)
[2025-08-09 13:10] LABS: Microalbumin,Random Urine 624.0 mg/L (<20 mg/L)
[2025-08-09 14:17] LABS: AST(SGOT) 20 U/L (<=37); Alanine Aminotransfer ALT/SGPT 20 U/L (<=46); Albumin, Serum 4.3 g/dL (3.4-4.8); Alkaline Phosphatase 55 U/L (40-129); Anion Gap 14 (5-15); BUN 19 mg/dL (4-19); BUN/Creat Ratio 16.8 RATIO (10-20); Calcium,Total 9.3 mg/dL (7.6-11.0); Carbon Dioxide 20.7 mmol/L (21.0-32.0); Chloride 104 mmol/L (98-108); Globulin 2.3 g/dL (2.2-4.2); Glucose 107 mg/dL (70-99); Potassium 4.2 mmol/L (3.3-5.1)
== END | disposition home or self-care (01) ==
LOC: MFPLAB 09:29
PROVIDERS: PCP Family Medicine; Visit Provider Family Medicine
DX: I10 Essential (primary) hypertension (principal)
CPT/HCPCS: 36415; 80053; 82043; 82570

== ENCOUNTER → 2025-09-27 | Outpatient (CLI) | payer MEDICARE, SELFPAY ==
--- NOTE | 2025-09-27 08:53 | ECHOD_ITS ---
Reason For Study ECHO/Echo Complete
== END | disposition home or self-care (01) ==
PROVIDERS: PCP Family Medicine; Referring Provider Family Medicine; Visit Provider Family Medicine
DX: M79.89 Other specified soft tissue disorders (principal); R06.02 Shortness of breath
CPT/HCPCS: 93306

== ENCOUNTER 2025-10-12 12:30 | Outpatient (RCR) | payer MEDICARE, SELFPAY ==
--- NOTE | 2025-10-01 13:20 | HP.PTEVAL ---
Patient's Visit Information Visit Information Visit Information: BLACK COLE is a 65 year old M referred to Physical Therapy by Dr. Johnson Mckee MD with a diagnosis of RIGHT SHOULDER PAIN WITH ARM PAIN ,RIGHT BACK PAIN. Date of Evaluation: 10/01/25 Physical Therapist: Celso Zamora, PT, Cert MDT, OCS Visit Plan Frequency: 2x /Week Duration: 4 Weeks Plan: PT INTERVENTIONS CERVICAL ROM ( INTAIL AVOID TO RIGHT ),POSTURAL EX'S ,ICTX 15# -22# ON TIME FOR 15 MINS ,US ,AND DLS Subjective Subjective: This 65 y/o male presents to physical therapy with right lumbar pain and right shoulder pain radiating in right arm . Patient has had symptoms for ~ 3 weeks. Patient symptoms where insidious onset , just woke up with symptoms. Seen DR holden imaging and muscle relaxer. Patient pain located right UT and scapular no back pain.Aggravating turning to right ,looking up ,driving with arms on steering wheel. Alleviating factors rest. Patient has occasional paresthesia/tingling . Patient denies JACKSON/nausea/dizziness/tinnitus. Patient able to sleep throughout night. Back pain aggravating factors not specific due to patient has no lumbar pain. Patient bowel/coughing-.Coughing/sneezing -. No injury and trauma. Patient condition affects QOL and function. Patient goals to decrease pain. SOCIAL: VOCATION: RETIRED Pain Right Scapula: Pain Intensity (Out of 10): 5 Pain Intensity Range: 7 Objective Objective: POSTURE: rounded shoulders head forward PALPATION: tender UT/levator NEURO: occasional paresthesia/tingling right arm reflexes C5-6-7 2/3 ,L3-4,L4-5,L5-S1 2/3 GAIT: reciprocal pattern AROM BUE: WFL MMT: BUE grossly 4/5 except right shoulder 4-/5 CERVICAL ROM:flexion WFL ,lateral flexion/rotation 50% pain right side extension 50% loss pain , LUMBAR ROM: 25% flexion ,extension 50% loss .side glides 25% loss no pain FLEXABILITY : hamstrings min tight Special Tests C/S Radiculapathy - Left Upper limb tension test: Negative C/S Radiculapathy - Right Upper limb tension test: Negative C/S Radiculapathy - Left Spurlings: Negative C/S Radiculapathy - Right Spurlings: Positive C/S Radiculapathy - Left Cervical distraction: Negative C/S Radiculapathy - Right Cervical distraction: Negative C/S Radiculapathy - Left Relief test: Negative C/S Radiculapathy - Right Relief test: Negative C/S Radiculapathy - Valsalva: Negative Sharp Vicente: Negative Vertebral Artery Test: Negative Alar Ligament Test: Negative L/S Slump test left side: Negative L/S Slump test right side: Negative L/S Left Straight Leg Raise: Negative L/S Right Straight Leg Raise: Negative Balance/Special Test Scores Oswestry Neck Score: 10 Goals Goal 1:: Patient to be I with HEP for cervical to dreacreas symptoms Goal Time Frame: 4-6 Weeks Goal 2:: Patient to improve cervical ROM for function of recovery to right with less pain for ADLS Goal Time Frame: 4-6 Weeks Goal 3:: Patient to improve neck oswestry score by 5 points to improve QOL and function Goal Time Frame: 4-6 Weeks Goal 4:: Patient to demonstrate 50% improvement with less pain and improved function Goal Time Frame: 4-6 Weeks Rehabilitation Potential Physical Therapy Diagnosis: This patient has right cervical pain with radicular symptom in arm with pain towards right and extension ,+ spurling test to right and currently no back pain which is better Rehabilitation Potential: Good Anticipated Interventions Patient/Client Instruction: Educate patient on: Condition and Plan of Care For the Purpose of:: To decrease pain, To increase ROM, To improve muscle performance and motor function, To increase tolerance to activity/condition/position, To improve ability of physical actions for home/community/work/leisure, To improve health of tissue, To decrease soft tissue restriction and To increase flexibility/ROM Therapeutic Exercise to Include: Strength training, Postural training, Flexibilty training, Active ROM and Scapular Strength/Stabilization For the Purpose of:: To decrease pain, To increase ROM, To improve muscle performance and motor function, To improve ability to perform ADL's, To increase tolerance to activity/condition/position, To improve ability of physical actions for home/community/work/leisure, To improve health of tissue, To decrease soft tissue restriction and To increase flexibility/ROM Cryotherapy (ice pack, ice massage): Yes Thermo therapy (hot pack): Yes Ultrasound (thermal/non thermal): Yes Intermittent cervical traction: Yes For the Purpose of:: To decrease pain, To increase ROM, To improve muscle performance and motor function, To improve health of tissue and To decrease soft tissue restriction Text: Thank you for the opportunity to evaluate your patient. For Medicare and Medicare HMO plans, please review the plan of care and approve it. It will need to be FAXED BACK to us at [phone] for Medicare purposes. For Medicare only, by signing this I certify the plan of care. Please let me know if there are questions or concerns regarding this plan of care. Physician Signature: Date:
--- NOTE | 2025-10-12 13:04 | HP.PTDCSUM ---
Discharge Summary D/C summary: It has been my pleasure to treat BLACK COLE referred by Dr. Johnson Mckee MD, with the diagnosis of RIGHT SHOULDER PAIN WITH ARM PAIN ,RIGHT BACK PAIN for a total of 4 visit(s). Discharge Date: 10/12/25 Please see the following information for a summary of their discharge status. Subjective Subjective: Doing great ready for d/c Pain Right Scapula: Pain Intensity (Out of 10): 0 Overall Improvement % Improvement: 100 Objective Objective/Function: POSTURE: rounded shoulders head forward PALPATION: tender UT/levator NEURO: occasional paresthesia/tingling right arm reflexes C5-6-7 2/3 ,L3-4,L4-5,L5-S1 2/3 GAIT: reciprocal pattern AROM BUE: WFL MMT: BUE grossly 4/5 except right shoulder 4/5 CERVICAL ROM:flexion WFL ,lateral flexion/rotation 25% extension 25% loss , LUMBAR ROM: 25% flexion ,extension 25 loss .side glides 25% loss no pain FLEXABILITY : hamstrings min tight Goals Goal 1:: Patient to be I with HEP for cervical to dreacreas symptoms Goal Progress: Goal Met Goal 2:: Patient to improve cervical ROM for function of recovery to right with less pain for ADLS Goal Progress: Goal Met Goal 3:: Patient to improve neck oswestry score by 5 points to improve QOL and function Goal Progress: Goal Met Goal 4:: Patient to demonstrate 50% improvement with less pain and improved function Goal Progress: Goal Met Plan Plan: d/c to hep D/C Information Discharge Comments: hep d/c sentence: If there are questions or concerns regarding this patient's physical therapy, please feel free to call me at [phone]. Thank you for the referral of this patient. Sincerely, Celso Zamora, PT, Cert MDT, OCS Balance/Gait/Functional tests Balance/Special Test Scores Oswestry Neck Score: 0 Improvement % Improvement: 100
== END 2025-10-12 19:00 | disposition home or self-care (01) ==
LOC: PT 12:30
PROVIDERS: PCP Family Medicine; Referring Provider Family Medicine; Visit Provider Family Medicine
DX: M54.50 Low back pain, unspecified (principal); M25.511 Pain in right shoulder
CPT/HCPCS: 97012; 97014; 97110; 97162; G0283